=== PATIENT | female | born 1995 | race Two or more races ===

== ENCOUNTER 2024-01-30 14:55 | Emergency (ER) | payer OTHER ==
[~2024-01-30] VITALS: Ht 165.1 cm; Wt 81.2 kg
[2024-01-30] MEDS ORDERED: CEFTRIAXONE SODIUM 1,000 MG VIAL IM STA (18:42)
[2024-01-30] MEDS ORDERED: KETOROLAC TROMETHAMINE 30 MG VIAL IM STA (18:42)
== END 2024-01-30 19:02 | disposition home or self-care (01) ==
LOC: ER 14:56
DX: J03.90 Acute tonsillitis, unspecified (principal); Z20.822 Contact with and (suspected) exposure to COVID-19